=== PATIENT | female | born 1990 | race Caucasian/White ===

== ENCOUNTER 2018-04-16 18:41 | Emergency (ER) | payer BC ==
[~2018-04-16] VITALS: Ht 162.6 cm; Wt 77.6 kg
--- NOTE | 2018-04-16 18:58 | ED.ADGEN ---
Adult General Chief Complaint Chief Complaint " I was cutting up chicken.. and I went to clean the knife blade.. 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 index finger cutting up chicken. Patient distal neurovascular intact. Patient does not remember last tetanus. Patient is normally healthy. Discussed TREATMENT options, patient has elected to have suture repair. Patient denies any immunosuppression. Patient normally healthy. Patient follows at [facility]. Review of Systems Review of Systems Constitutional: Denies fever or chills [] Eyes: Denies change in visual acuity, redness, or eye pain [] HENT: Denies nasal congestion or sore throat [] Respiratory: Denies cough or shortness of breath [] Cardiovascular: No additional information not addressed in HPI [] GI: Denies abdominal pain, nausea, vomiting, bloody stools or diarrhea [] : Denies dysuria or hematuria [] Musculoskeletal: Denies back pain or joint pain [] Integument: Denies rash or skin lesions []complains of right index finger laceration Neurologic: Denies headache, focal weakness or sensory changes [] Endocrine: Denies polyuria or polydipsia [] All other systems were reviewed and found to be within normal limits, except as documented in this note. Family History Family History Noncontributory Current Medications Current Medications Current Medications Medications (Trade) Dose Ordered Sig/[place] Start Time Stop Time Status Last Admin Dose Admin Bupivacaine HCl (Sensorcaine Mpf 0.5%) 30 ml 1X ONCE 04/16/18 19:00 04/16/18 19:14 DC Lidocaine HCl 20 ml 1X ONCE 04/16/18 19:30 04/16/18 19:31 DC Tetanus/ Diphtheria Toxoids Adsorbed (Tenivac Vial) 0.5 ml ONCE ONCE 04/16/18 19:30 04/16/18 19:31 DC 04/16/18 19:34 0.5 ML Allergies Allergies Allergies Coded Allergies Type Severity Reaction Last Updated Verified No Known Drug Allergies 04/16/18 No Physical Exam Physical Exam Constitutional: Well developed, well nourished, moderately acute distress, non- toxic appearance. [] HENT: Normocephalic, atraumatic, bilateral external ears normal, oropharynx moist, no oral exudates, nose normal. [] Eyes: PERRLA, EOMI, conjunctiva normal, no discharge. [] Neck: Normal range of motion, no tenderness, supple, no stridor. [] Cardiovascular:Heart rate regular rhythm, no murmur [] Lungs & Thorax: Bilateral breath sounds clear to auscultation [] Abdomen: Bowel sounds normal, soft, no tenderness, no masses, no pulsatile masses. [] Skin: Warm, dry, no erythema, no rash. [] Laceration right index finger pad as per history of present illness Back: No tenderness, no CVA tenderness. [] Extremities: No tenderness, no cyanosis, no clubbing, ROM intact, no edema. [] Neurologic: Alert and oriented X 3, normal motor function, normal sensory function, no focal deficits noted. [] Psychologic: Affect anxious, judgement normal, mood normal. [] Current Patient Data Vital Signs Vital Signs Date Time Temp Pulse Resp B/P (MAP) Pulse Ox O2 Delivery O2 Flow Rate FiO2 04/16/18 19:53 62 18 120/80 (93) 98 Room Air 04/16/18 18:55 98.1 EKG EKG [] Radiology/Procedures Radiology/Procedures [] Course & Med Decision Making Course & Med Decision Making Pertinent Labs and Imaging studies reviewed. (See chart for details) Suture note-finger cleaned with surgical soap and water. Betadine applied to edge of laceration. Injected edge laceration of Sensorcaine and lidocaine. Patient also received a digital block. Finger re-irrigated in range of motion. Patient received 6-x4-0 Prolene sutures. Dressing applied. Patient to keep the finger clean and dry. Polysporin 4 times a day. Patient wear finger cot while working with [employer]. Sutures out in 10 days. Return if any concerns. Tylenol and ibuprofen for pain. [] Final Impression Final Impression 1. Laceration Rt. Index-finger pad 2 cm[] Dragon Disclaimer Dragon Disclaimer This electronic medical record was generated, in whole or in part, using a voice recognition dictation system. GERALD HOGUE MD Apr 16, 2018 18:58
[2018-04-16] MEDS ORDERED: BUPIVACAINE MPF 0.5% 30 ML VIAL. SQ ONE (19:00)
[2018-04-16] MEDS ORDERED: LIDOCAINE 2% 20 ML VIAL. IJ ONE (19:30)
[2018-04-16] MEDS ORDERED: TETANUS AND DIPHTHERIA TOX/PF 0.5 ML VIAL. VAX IM ONE (19:30)
[2018-04-16 19:53] VITALS: BP 120/80
== END 2018-04-16 19:52 | disposition home or self-care (01) ==
LOC: ER 18:41
DX: S61.210A Laceration without foreign body of right index finger without damage to nail, initial encounter (principal); W26.0XXA Contact with knife, initial encounter; Y93.89 Activity, other specified; Y99.8 Other external cause status; Y92.89 Other specified places as the place of occurrence of the external cause
CPT/HCPCS: 12001; 90471; 90714; 99283-25